=== PATIENT | female | born 1995 | race Caucasian/White ===

== ENCOUNTER 2017-07-02 11:45 | Emergency (ER) | payer OTHER ==
[~2017-07-02] VITALS: Ht 157.4 cm; Wt 57.2 kg
[2017-07-02] MEDS ORDERED: PREDNISONE20 M1 PO (13:59)
== END 2017-07-02 14:20 | disposition home or self-care (01) ==
LOC: ED 11:45
DX: L25.9 Unspecified contact dermatitis, unspecified cause (principal); Z88.8 Allergy status to other drugs, medicaments and biological substances